=== PATIENT | female | born 1985 | race Hispanic/Latino ===

== ENCOUNTER 2023-01-28 11:38 | Day surgery (SDC) | payer BC, SELFPAY ==
[2023-01-28] MEDS ORDERED: Piperacillin/Tazobactam 3.375 GM VIAL ONE (14:57)
[2023-01-28 15:17] LABS: BHCG - Serum Negative (NEGATIVE); Pregs Control Background? CLEAR/WHITE (CLR/WHITE); Pregs Control Bar Appear? YES (CONTROL BAR)
[2023-01-28] MEDS ORDERED: Iopamidol 15 ML ONE ×2 (16:31→16:35)
[2023-01-28] MEDS ORDERED: Bupivacaine HCl 0.5%/Epinephrine 1:200,000/PF 30 ml Vial ONE ×3 (16:31→16:32)
[2023-01-28] MEDS ORDERED: Fentanyl 100 MCG/2 ML VIAL ONE ×2 (16:57→18:47)
[2023-01-28] MEDS ORDERED: PROPOFOL 20 ML ONE (16:57)
[2023-01-28] MEDS ORDERED: Lidocaine 2% PF 5 ML VIAL ONE (16:59)
[2023-01-28] MEDS ORDERED: Ondansetron PF 4 MG/2 ML Vial ONE (16:59)
[2023-01-28] MEDS ORDERED: Glycopyrrolate 0.2 MG/ML 5 ML SYRINGE ONE (16:59)
[2023-01-28] MEDS ORDERED: Ketorolac Tromethamine 30 MG/ML VIAL ONE (16:59)
[2023-01-28] MEDS ORDERED: Rocuronium Bromide 10 MG/ML (10ML VIAL) ONE (16:59)
[2023-01-28] MEDS ORDERED: Dexamethasone 20 MG/5 ML VIAL ONE (16:59)
[2023-01-28] MEDS ORDERED: PHENYLEPHRINE-NS 100 MCG/ML 10 ML SYRINGE ONE (17:42)
[2023-01-28] MEDS ORDERED: HYDROcodone/Acetaminophen 5/325 mg Tablet ONE (19:20)
== END 2023-01-28 18:27 | disposition home or self-care (01) ==
LOC: CSHERS 11:38 → CSHSDC 17:24 → CSHERS 17:25 → CSHSDC 18:27 → CSHERS 20:15
PROVIDERS: ATTEND Surgery
PROC: 0FT44ZZ Resection of Gallbladder, Percutaneous Endoscopic Approach (ICD-10-PCS; principal; 2023-01-28)
PROC: BF522Z0 Other Imaging of Gallbladder using Fluorescing Agent, Intraoperative (ICD-10-PCS; principal; 2023-01-28)
DX: K80.12 Calculus of gallbladder with acute and chronic cholecystitis without obstruction (principal); J45.909 Unspecified asthma, uncomplicated; E66.9 Obesity, unspecified; Z79.899 Other long term (current) drug therapy
CPT/HCPCS: 47532; 76705; 84703; 88304; 96365; C1889; J1100; J1885; J2001; J2405; J2543; J2704; J3010; Q9967

== ENCOUNTER 2024-08-24 12:55 | Emergency (ER) | payer BC | END 2024-08-24 14:45 | disposition home or self-care (01) | LOC: CSHERS 12:55 | DX: J01.10 Acute frontal sinusitis, unspecified (principal); J01.00 Acute maxillary sinusitis, unspecified; J06.9 Acute upper respiratory infection, unspecified | CPT/HCPCS: 99283 ==